=== PATIENT | female | born 1985 | race Native Hawaiian/Other Pacific Islander ===

== ENCOUNTER 2024-08-22 19:44 | Emergency (ER) | payer BC, OTHER ==
[~2024-08-22] VITALS: Ht 165.1 cm; Wt 86.2 kg
[2024-08-22 19:48] VITALS: O2SAT 98
== END 2024-08-22 21:30 | disposition left against medical advice (07) ==
LOC: ER 19:44
DX: M54.2 Cervicalgia (principal); M25.519 Pain in unspecified shoulder; Z53.21 Procedure and treatment not carried out due to patient leaving prior to being seen by health care provider
CPT/HCPCS: A4606; A4663